=== PATIENT | female | born 1990 | race Two or more races ===

== ENCOUNTER 2022-09-11 17:05 | Inpatient (IN) | payer OTHER ==
[~2022-09-11] VITALS: Ht 162.6 cm; Wt 104.3 kg
[2022-09-11] MEDS: OXYTOCIN 20 UNITS in LACTATED RINGERS 1,000 ML IV SCH (08:52)
[2022-09-11] MEDS ORDERED: AMPICILLIN 2,000 MG VIAL ONE (17:34)
[2022-09-11] MEDS ORDERED: LACTATED RINGERS 1,000 ML IV SCH ×2 (17:35→21:35)
[2022-09-11] MEDS ORDERED: CARBOPROST 250 MCG/ML AMP IM PRN (17:35)
[2022-09-11] MEDS ORDERED: METHYLERGONOVINE 0.2 MG/ML AMP IM PRN ×2 (17:35→20:55)
[2022-09-11] MEDS ORDERED: OXYTOCIN 10 UNITS/ML VIAL IM SCH (17:35)
[2022-09-11] MEDS ORDERED: AMPICILLIN 2,000 MG in NACL 0.9% MINI-BAG PLUS 100 ML IV ONE (17:35)
[2022-09-11 18:17] LABS: PROTHROMBIN TIME 8.9 secs (10.8-13.4)
[2022-09-11] MEDS ORDERED: NALBUPHINE 10 MG/ML AMP ONE (18:18)
[2022-09-11] MEDS ORDERED: ROPIVACAINE 0.2%/NS PREMIX 0 ML EPI ONE (18:20)
[2022-09-11] MEDS ORDERED: fentaNYL citrate 0.05 MG/ML VIAL ONE (18:21)
[2022-09-11] MEDS ORDERED: NALBUPHINE 10 MG/ML AMP IVP PRN (18:25)
[2022-09-11] MEDS ORDERED: SUCCINYLCHOLINE CHLORIDE 200 MG/10 ML VIAL IVP ONE (19:51)
[2022-09-11] MEDS ORDERED: SUCCINYLCHOLINE CHLORIDE 200 MG/10 ML VIAL IVP SCH (19:55)
[2022-09-11] MEDS ORDERED: ceFAZolin 2,000 MG VIAL ONE (20:20)
[2022-09-11] MEDS ORDERED: SEVOFLURANE 250 ML BTL INH ONE (20:35)
[2022-09-11] MEDS ORDERED: KETOROLAC 30 MG/ML VIAL IVP PRN (20:55)
[2022-09-11] MEDS ORDERED: oxyCODONE/APAP 5/325 MG 1 TAB TAB PO PRN (20:55)
[2022-09-11] MEDS ORDERED: TEMAZEPAM 15 MG CAP PO PRN (20:55)
[2022-09-11] MEDS ORDERED: HYDROmorphone PFS 2 MG/ML SYR IVP PRN (20:55)
[2022-09-11] MEDS ORDERED: IBUPROFEN 800 MG TAB PO PRN (20:55)
[2022-09-11] MEDS ORDERED: DOCUSATE SOD/SENNA 50/8.6 MG 1 TAB PO SCH (21:00)
[2022-09-11] MEDS: OXYTOCIN 20 UNITS/LR PREMIX 1,000 ML IV ONE ×3 (21:05→21:41)
--- NOTE | 2022-09-11 21:25 | NUR ---
RESPONDED TO CALL @ 20:02 TO ASSIST DURING EMERGENCY C SECTION. BABY WAS BORN AND PLACED ON WARMER, STIMULATED, ORALLY SUCTIONED WITH BULB SUCTION FOR MINIMUM SECRETIONS. 1 MIN OF 7 PROVIDED BABY WITH PPV UNTIL SPO2 WAS ADEQUATE AND BABY DEMONSTRATED STRONG CRY. SYMMETRICAL CHEST RISE AND FALL NOTED AND BILATERAL BREATH SOUNDS AUSCULTATED. 5 MIN OF 9 BABY IS IN CARE OF DR AND RN NO SIGN OF RESPIRATORY DISTRESS NOTED NO OTHER RESPIRATORY INTERVENTION WAS NEEDED AT THIS TIME.
[2022-09-11] MEDS ORDERED: HYDROmorphone 1 MG/ML AMP IVP PRN (21:35)
[2022-09-11] MEDS ORDERED: ONDANSETRON 4 MG/2 ML VIAL IVP PRN (21:35)
[2022-09-11] MEDS ORDERED: hydrALAZINE 20 MG/ML VIAL IVP PRN (21:37)
[2022-09-11] MEDS ORDERED: LABETALOL 20 MG/4 ML VIAL IVP PRN (21:37)
[2022-09-11] MEDS ORDERED: AMPICILLIN 1,000 MG in NACL 0.9% MINI-BAG PLUS 50 ML IV SCH (22:00)
[2022-09-12] MEDS ORDERED: ceFAZolin 1,000 MG VIAL ONE (04:47)
[2022-09-12 05:48] LABS: BASOPHILS % (AUTO) 0.2 % (0.0-2.0); EOSINOPHILS % (AUTO) 0.2 % (0.0-4.0); HEMATOCRIT 20.4 % (36-48); LYMPHOCYTES # (AUTO) 1.3 K/uL (2.5-16.5); LYMPHOCYTES % (AUTO) 10.4 % (20.5-51.1); MEAN CORPUSCULAR HEMOGLOBIN 24 pg (27-31); MEAN CORPUSCULAR HGB CONC 32 g/dL (33-37); MEAN CORPUSCULAR VOLUME 74.7 fL (80-94); MONOCYTES # (AUTO) 0.6 K/uL (0.8-1.0); MONOCYTES % (AUTO) 4.5 % (1.7-9.3); NEUTROPHILS # (AUTO) 10.6 K/uL (1.8-7.7); NEUTROPHILS % (AUTO) 84.7 % (42.2-75.2); PLATELET COUNT (AUTO) 243 K/uL (140-450); RED BLOOD CELL COUNT(AUTO) 2.72 MIL/uL (4.20-5.40); RED CELL DISTRIBUTION WIDTH 17.5 % (11.6-13.7); WHITE BLOOD COUNT (AUTO) 12.5 K/uL (4.8-10.8)
[2022-09-12 06:53] LABS: HEMOGLOBIN 6.4 g/dL (12.0-16.0)
[2022-09-12] MEDS ORDERED: OXYTOCIN 20 UNITS/LR PREMIX 1,000 ML IV ONE ×2 (08:36→18:01)
[2022-09-12] MEDS: SIMETHICONE 80 MG TAB.CHEW PO PRN ×2 (09:01→13:12)
--- NOTE | 2022-09-12 09:18 | NUR ---
PATIENT HAS BEEN SCREENED AND CATEGORIZED LOW NUTRITION RISK. PATIENT WILL BE SEEN WITHIN 7 DAYS OF ADMISSION. 09/18/22 REVIEWED BY MICHELLE CARO RD
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
[2022-09-12] MEDS: OXYTOCIN 20 UNITS in LACTATED RINGERS 1,000 ML IV SCH (18:06)
[2022-09-12] MEDS ORDERED: CAMERA MC ONE (19:25)
[2022-09-12] MEDS: oxyCODONE/APAP 5/325 MG 1 TAB TAB PO PRN (19:42)
[2022-09-12] MEDS ORDERED: FLU VACCINE QS2022-23 0.5 ML SYR IMVAC ONE (23:55)
[2022-09-13] MEDS: oxyCODONE/APAP 5/325 MG 1 TAB TAB PO PRN ×2 (02:19→10:34)
[2022-09-13] MEDS: SIMETHICONE 80 MG TAB.CHEW PO PRN ×2 (08:56→14:37)
[2022-09-13 09:06] LABS: HEPATITIS B SURFACE ANTIGEN Negative (Negative)
== END 2022-09-13 16:35 | disposition left against medical advice (07) | DRG 540 ==
LOC: MLD 17:05 → MFCC 22:49
PROVIDERS: ADMIT Obstetrics & Gynecology; ATTEND Obstetrics & Gynecology
PROC: 10D00Z1 Extraction of Products of Conception, Low, Open Approach (ICD-10-PCS; principal; 2022-09-11 18:00)
PROC: 3E0234Z Introduction of Serum, Toxoid and Vaccine into Muscle, Percutaneous Approach (ICD-10-PCS; 2022-09-12)
DX: O76 Abnormality in fetal heart rate and rhythm complicating labor and delivery (principal); O60.14X0 Preterm labor third trimester with preterm delivery third trimester, not applicable or unspecified; O41.03X0 Oligohydramnios, third trimester, not applicable or unspecified; Z20.822 Contact with and (suspected) exposure to COVID-19; Z53.29 Procedure and treatment not carried out because of patient's decision for other reasons; Z37.0 Single live birth; Z3A.36 36 weeks gestation of pregnancy; D64.9 Anemia, unspecified; Z23 Encounter for immunization
CPT/HCPCS: 36415; 51702; 85025; 85610; 85730; 86592; 86762; 86886; 86900; 86901; 87340; 90715; J0290; J0330; J0690; J1885; J2300; J2590; J2795; J3010; J7060; J7120

== ENCOUNTER 2023-04-14 23:20 | Emergency (ER) | payer OTHER ==
[~2023-04-14] VITALS: Ht 162.6 cm; Wt 78.9 kg
[2023-04-14 23:26] VITALS: BP 123/78; PULSE 88; RESP 20; TEMP 98.6; O2SAT 96
--- NOTE | 2023-04-14 23:27 | NUR ---
Dr. Mejia examining patient.
[2023-04-14] MEDS ORDERED: HALOPERIDOL IM 5 MG/ML VIAL ONE (23:29)
[2023-04-14] MEDS ORDERED: LORazepam 2 MG/ML VIAL ONE (23:29)
[2023-04-14] MEDS ORDERED: NACL 0.9% 1,000 ML IV ONE (23:30)
[2023-04-14] MEDS ORDERED: diphenhydrAMINE 50 MG/ML VIAL IM ONE (23:30)
[2023-04-14] MEDS ORDERED: LORazepam 2 MG/ML VIAL IM ONE (23:30)
[2023-04-14] MEDS ORDERED: HALOPERIDOL IM 5 MG/ML VIAL IM ONE (23:30)
[2023-04-14] MEDS ORDERED: diphenhydrAMINE 50 MG/ML VIAL ONE (23:31)
--- NOTE | 2023-04-14 23:41 | NUR ---
PT JORGE ALS. TAKEN TO BED 12. MINDY SU AT BEDSIDE FOR PRE-BOOKING
[2023-04-14 23:53] LABS: BASOPHILS % (AUTO) 0.8 % (0.0-2.0); EOSINOPHILS # (AUTO) 0.1 K/uL (0-0.4); EOSINOPHILS % (AUTO) 2.2 % (0.0-4.0); HEMOGLOBIN 8.8 g/dL (12.0-16.0); LYMPHOCYTES # (AUTO) 2.2 K/uL (2.5-16.5); LYMPHOCYTES % (AUTO) 42.7 % (20.5-51.1); MEAN CORPUSCULAR HEMOGLOBIN 24 pg (27-31); MEAN CORPUSCULAR HGB CONC 33 g/dL (33-37); MEAN CORPUSCULAR VOLUME 72.8 fL (80-94); MONOCYTES # (AUTO) 0.4 K/uL (0.8-1.0); MONOCYTES % (AUTO) 8.3 % (1.7-9.3); NEUTROPHILS # (AUTO) 2.3 K/uL (1.8-7.7); PLATELET COUNT (AUTO) 339 K/uL (140-450); RED BLOOD CELL COUNT(AUTO) 3.71 MIL/uL (4.20-5.40); RED CELL DISTRIBUTION WIDTH 21.3 % (11.6-13.7); WHITE BLOOD COUNT (AUTO) 5.1 K/uL (4.8-10.8)
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
[2023-04-15 00:14] LABS: ALBUMIN 3.3 g/dL (3.4-5.0); ANION GAP 12.2 (8-16); CARBON DIOXIDE 27.7 mmol/L (21-32); CREATININE 0.7 mg/dL (0.6-1.3); TOTAL BILIRUBIN 0.4 mg/dL (0.0-1.0)
[2023-04-15 00:17] LABS: POTASSIUM 2.9 mmol/L (3.5-5.1)
[2023-04-15 00:18] LABS: ACETAMINOPHEN < 0.5 ug/ml (10-30); SALICYLATE < 2.8 mg/dL (2.8-20.0)
--- NOTE | 2023-04-15 00:42 | NUR ---
PT TAKEN TO CT
[2023-04-15] MEDS ORDERED: KCL 20 MEQ IN 100 mL PREMIX 200 ML IV ONE (02:15)
--- NOTE | 2023-04-15 04:31 | NUR ---
2nd bag of potasium started
--- NOTE | 2023-04-15 05:10 | NUR ---
verbal order for straight cath received from marcio wolfe. straight cath completed 700cc u/p pt tolerated well. asssisted by bernardino connelly. sample sent to lab.
[2023-04-15 05:32] LABS: BARBITURATE, URINE NEGATIVE ng/ml (NEG <=200); BENZODIAZEPINE, URINE POSITIVE ng/mL (NEG <=200); CANNABINOID, URINE POSITIVE ng/mL (NEG <=50); COCAINE, URINE NEGATIVE ng/mL (NEG <=300); OPIATE, URINE NEGATIVE ng/mL (NEG <=2000); PHENCYCLIDINE SCREEN,URINE NEGATIVE ng/mL (NEG <=25)
--- NOTE | 2023-04-15 06:37 | NUR ---
pt still very drowsy, connected to monitor vss.
[2023-04-15 06:53] LABS: ANION GAP 9.6 (8-16); CREATININE 0.6 mg/dL (0.6-1.3); POTASSIUM 3.6 mmol/L (3.5-5.1)
--- NOTE | 2023-04-15 07:15 | NUR ---
pt report to ALYSSA, RN
[2023-04-15 08:34] VITALS: BP 127/85; PULSE 74; RESP 16; TEMP 96.8; O2SAT 100
--- NOTE | 2023-04-15 08:41 | NUR ---
Patient discharged with v/s stable. Written and verbal after care instructions given and explained. Patient verbalized understanding. Police with in custody. All questions addressed prior to discharge. Advised to follow up with PMD. OFFICER NEIDA [email or web address]
== END 2023-04-15 08:41 ==
LOC: MED 23:20
DX: R46.89 Other symptoms and signs involving appearance and behavior (principal); F10.129 Alcohol abuse with intoxication, unspecified; Z91.018 Allergy to other foods
CPT/HCPCS: 36415; 70450; 80048; 80053; 80305; 84703; 85025; 96360; 96361; 96372; 99291; 99292; G0480; G0482; J1200; J1630; J2060; J3480; J7030

== ENCOUNTER 2024-04-14 03:45 | Emergency (ER) | payer OTHER ==
[~2024-04-14] VITALS: Ht 162.6 cm; Wt 76.2 kg
[2024-04-14 03:57] VITALS: BP 125/80; PULSE 87; RESP 18; TEMP 98.2; O2SAT 98
[2024-04-14 04:11] VITALS: O2SAT 98
[2024-04-14 04:14] VITALS: BP 107/68; PULSE 87; RESP 16; TEMP 98.5; O2SAT 98
[2024-04-14] MEDS ORDERED: ACET-10509 PO (05:20)
[2024-04-14 05:50] LABS: AMPHETAMINE, URINE POSITIVE ng/ml (NEG <=1000); BARBITURATE, URINE NEGATIVE ng/ml (NEG <=200); BENZODIAZEPINE, URINE NEGATIVE ng/mL (NEG <=200); CANNABINOID, URINE POSITIVE ng/mL (NEG <=50); COCAINE, URINE NEGATIVE ng/mL (NEG <=300)
[2024-04-14 05:51] LABS: OPIATE, URINE NEGATIVE ng/mL (NEG <=2000); PHENCYCLIDINE SCREEN,URINE NEGATIVE ng/mL (NEG <=25)
== END 2024-04-14 06:05 | disposition home or self-care (01) ==
LOC: MED 03:45
DX: M79.10 Myalgia, unspecified site (principal); F41.9 Anxiety disorder, unspecified; I10 Essential (primary) hypertension; F15.10 Other stimulant abuse, uncomplicated; Z79.1 Long term (current) use of non-steroidal anti-inflammatories (NSAID); Z20.822 Contact with and (suspected) exposure to COVID-19
CPT/HCPCS: 80305; 81025; 93005; 99284